=== PATIENT | female | born 1950 | race Caucasian/White ===

== ENCOUNTER 2020-10-20 18:33 | Emergency (ER) | payer SELFPAY ==
[~2020-10-20] VITALS: Ht 167.7 cm; Wt 61.7 kg
--- NOTE | 2020-10-20 19:01 | ED General ---
General Stated Complaint: LATHARGIC,DIZZY Source of Information: Patient, Family Exam Limitations: No Limitations History of Present Illness Date Seen by Provider: Oct 20, 2020 Time Seen by Provider: 18:45 Initial Comments Patient is a 70-year-old female with history of cognitive decline/forgetfulness over the past 3 years with generalized fatigue weakness and nonproductive cough for the past several days. Patient does not seek routine medical care and has not been on any medications. She lives with her son and is accompanied at bedside by her daughter who are both concerned that patient's condition has d eclined in the past several days. Patient did have a fall 3 days ago landed on her hip. She denies hip pain or any other pain complaint at this time. She did hit her head lose consciousness. She denies fever chills, nausea vomiting or sweats. She denies headache neck pain, chest pain palpitations shortness of breath. No abdominal pain, nausea vomiting or diarrhea. No urinary frequency urgency or dysuria. No leg pain or swelling. No other acute symptoms or complaints. Timing/Duration: 1 Week, Changing Over Time Severity: Mild Modifying Factors: improves with Other Associated Systoms: Other Allergies and Home Medications Allergies Coded Allergies: amoxicillin (Verified Allergy, Unknown, 10/20/20) Patient Home Medication List Home Medication List Reviewed: Yes Review of Systems Review of Systems Constitutional: see HPI EENTM: see HPI Respiratory: see HPI Cardiovascular: see HPI Gastrointestinal: see HPI Genitourinary: see HPI Musculoskeletal: see HPI Skin: see HPI Psychiatric/Neurological: See HPI Hematologic/Lymphatic: See HPI Immunological/Allergic: see HPI All Other Systems Reviewed Negative Unless Noted: Yes Past Buuorwb-Rtrwhv-Nggwlf Hx Patient Social History Tobacco Use?: Yes Physical Exam Vital Signs Vital Signs - First Documented 10/20/20 18:45 Temp 36.0 Pulse 98 Resp 18 B/P (MAP) 178/90 (119) Pulse Ox 90 Capillary Refill : Height, Weight, BMI Height: '" Weight: lbs. oz. kg; BMI Method: General Appearance: No Apparent Distress, Anxious Eyes: Bilateral Eye Normal Inspection, Bilateral Eye PERRL, Bilateral Eye EOMI HEENT: PERRL/EOMI, Normal ENT Inspection, Pharynx Normal Neck: Full Range of Motion, Non Tender, Supple Respiratory: Lungs Clear, No Respiratory Distress Cardiovascular: Regular Rate, Rhythm Gastrointestinal: Non Tender, Soft Back: Normal Inspection, No CVA Tenderness Neurologic/Psychiatric: Alert, Oriented x3, field coordinator II-XII Norm as Tested, Other (Flat affect) Reflexes: 4+ Bicep (R), 4+ Bicep (L), 4+ Tricep (R) Skin: Normal Color Lymphatic: No Adenopathy Progress/Results/Core Measures Suspected Sepsis SIRS Temperature: Pulse: Respiratory Rate: Laboratory Tests 10/20/20 18:55: White Blood Count 11.8H Blood Pressure / Mean: Laboratory Tests 10/20/20 18:55: Creatinine 1.08, Platelet Count 294, Total Bilirubin 1.5H Results/Orders Lab Results Laboratory Tests Test 10/20/20 18:55 10/20/20 19:08 10/20/20 19:58 Range/Units White Blood Count 11.8 H 4.3-11.0 10^3/uL Red Blood Count 5.95 H 4.35-5.85 10^6/uL Hemoglobin 16.0 11.5-16.0 G/DL Hematocrit 49 35-52 % Mean Corpuscular Volume 83 80-99 FL Mean Corpuscular Hemoglobin 27 25-34 PG Mean Corpuscular Hemoglobin Concent 33 32-36 G/DL Red Cell Distribution Width 14.1 10.0-14.5 % Platelet Count 294 130-400 10^3/uL Mean Platelet Volume 10.4 7.4-10.4 FL Immature Granulocyte % (Auto) 1 % Neutrophils (%) (Auto) 72 42-75 % Lymphocytes (%) (Auto) 18 12-44 % Monocytes (%) (Auto) 8 0-12 % Eosinophils (%) (Auto) 0 0-10 % Basophils (%) (Auto) 0 0-10 % Neutrophils # (Auto) 8.5 H 1.8-7.8 X 10^3 Lymphocytes # (Auto) 2.2 1.0-4.0 X 10^3 Monocytes # (Auto) 0.9 0.0-1.0 X 10^3 Eosinophils # (Auto) 0.0 0.0-0.3 10^3/uL Basophils # (Auto) 0.0 0.0-0.1 10^3/uL Immature Granulocyte # (Auto) 0.1 0.0-0.1 10^3/uL Sodium Level 137 135-145 MMOL/L Potassium Level 3.1 L 3.6-5.0 MMOL/L Chloride Level 97 L 98-107 MMOL/L Carbon Dioxide Level 25 21-32 MMOL/L Anion Gap 15 H 5-14 MMOL/L Blood Urea Nitrogen 28 H 7-18 MG/DL Creatinine 1.08 0.60-1.30 MG/DL Estimat Glomerular Filtration Rate 50 BUN/Creatinine Ratio 26 Glucose Level 136 H 70-105 MG/DL Calcium Level 9.4 8.5-10.1 MG/DL Corrected Calcium 9.6 8.5-10.1 MG/DL Magnesium Level 2.3 1.6-2.4 MG/DL Total Bilirubin 1.5 H 0.1-1.0 MG/DL Aspartate Amino Transf (AST/SGOT) 47 H 5-34 U/L Alanine Aminotransferase (ALT/SGPT) 42 0-55 U/L Alkaline Phosphatase 90 40-136 U/L Troponin I 0.30 <0.30 NG/ML Pro-B-Type Natriuretic Peptide 9731.0 H <75.0 PG/ML Total Protein 8.2 6.4-8.2 GM/DL Albumin 3.8 3.2-4.5 GM/DL Urine Color YELLOW Urine Clarity CLEAR Urine pH 5.5 5-9 Urine Specific [place] 1.020 1.016-1.022 Urine Protein 1+ H NEGATIVE Urine Glucose (UA) NEGATIVE NEGATIVE Urine Ketones NEGATIVE NEGATIVE Urine Nitrite NEGATIVE NEGATIVE Urine Bilirubin 1+ H NEGATIVE Urine Urobilinogen 1.0 < = 1.0 MG/DL Urine Leukocyte Esterase NEGATIVE NEGATIVE Urine RBC (Auto) NEGATIVE NEGATIVE Urine RBC NONE /HPF Urine WBC 0-2 /HPF Urine Squamous Epithelial Cells 0-2 /HPF Urine Crystals NONE /LPF Urine Bacteria NEGATIVE /HPF Urine Casts NONE /LPF Urine Mucus NEGATIVE /LPF Urine Culture Indicated NO My Orders Orders - ZEE IVY DO Cbc With Automated Diff (10/20/20 18:54) Comprehensive Metabolic Panel (10/20/20 18:54) Urinalysis (10/20/20 18:54) Magnesium (10/20/20 18:54) Thyroid Stimulating Hormone (10/20/20 18:54) Troponin I Fs (10/20/20 18:54) Probnp Fs (10/20/20 18:54) Chest 1 View Ap/Pa Only (10/20/20 18:54) Ct Head Wo (10/20/20 18:54) Covid 19 Inhouse Test (10/20/20 19:08) Ed Iv/Invasive Line Start (10/20/20 19:20) Manual Differential (10/20/20 18:55) Potassium Chloride (Tablet) (K Dur Table (10/20/20 19:45) Medications Given in ED Current Medications Medications Dose Ordered Sig/Mariana Route Start Time Stop Time Status Last Admin Dose Admin Potassium Chloride 40 meq ONCE ONCE PO 10/20/20 19:45 10/20/20 19:46 DC 10/20/20 20:05 40 MEQ Vital Signs/I&O 10/20/20 18:45 Temp 36.0 Pulse 98 Resp 18 B/P (MAP) 178/90 (119) Pulse Ox 90 Capillary Refill : Departure Communication (Admissions) CT head: Chronic microvascular disease Chest x-ray: Cardiomegaly Patient with multiple vague medical concerns/problems. Potassium 3.1. Potassium replaced in the ED. Patient blood pressure elevated. But no chest pain headache blurred vision. Covid positive peers asymptomatic with the exception of fatigue. Recommendations are self quarantine watchful waiting and PCP follow-up. Impression Primary Impression: Fatigue Additional Impressions: Hypokalemia Cardiomegaly COVID Disposition: HOME, SELF-CARE Condition: Stable Departure-Patient Inst. Decision time for Depature: 21:14 Referrals: NO,LOCAL PHYSICIAN (PCP/Family) Primary Care Physician Patient Instructions: Fatigue (DC), Hypokalemia (DC), COVID-19 Overview Add. Discharge Instructions: You were evaluated in the emergency department and tested positive for Covid. Additionally your potassium was low and your heart was enlarged. Please go home increase fluids and eat foods rich in potassium. Continue self quarantine for the next 7 days and establish with a new primary care provider. Return to the ED if new or worsening symptoms. ZEE IVY DO Oct 20, 2020 19:01
[2020-10-20 19:22] LABS: BASOPHILS % (AUTO) 0 % (0-10); EOSINOPHILS % (AUTO) 0 % (0-10); HEMATOCRIT 49 % (35-52); LYMPHOCYTES # (AUTO) 2.2 X 10^3 (1.0-4.0); LYMPHOCYTES % (AUTO) 18 % (12-44); MEAN CORPUSCULAR HEMOGLOBIN 27 PG (25-34); MEAN CORPUSCULAR HGB CONC 33 G/DL (32-36); MEAN CORPUSCULAR VOLUME 83 FL (80-99); MEAN PLATELET VOLUME 10.4 FL (7.4-10.4); MONOCYTES # (AUTO) 0.9 X 10^3 (0.0-1.0); MONOCYTES % (AUTO) 8 % (0-12); NEUTROPHILS # (AUTO) 8.5 X 10^3 (1.8-7.8); NEUTROPHILS % (AUTO) 72 % (42-75); PLATELET COUNT 294 10^3/uL (130-400); WHITE BLOOD COUNT 11.8 10^3/uL (4.3-11.0)
[2020-10-20 19:32] LABS: BILIRUBIN,TOTAL 1.5 MG/DL (0.1-1.0); CALCIUM 9.4 MG/DL (8.5-10.1); CREATININE SERUM 1.08 MG/DL (0.60-1.30); MAGNESIUM 2.3 MG/DL (1.6-2.4); POTASSIUM 3.1 MMOL/L (3.6-5.0)
[2020-10-20 19:33] LABS: ALBUMIN 3.8 GM/DL (3.2-4.5); TOTAL PROTEIN 8.2 GM/DL (6.4-8.2)
--- NOTE | 2020-10-20 19:36 | Diagnostic Imaging Report ---
EXAMINATION: CT head without contrast. TECHNIQUE: Multiple contiguous axial images were obtained through the brain without the use of intravenous contrast. All CT scans use one or more of the following dose optimizing techniques: automated exposure control, MA and/or KvP adjustment based on patient size and exam type or iterative reconstruction. HISTORY: Altered mental status. Dizziness. COMPARISON: None available. FINDINGS: No large acute territorial ischemia, mass, or hemorrhage. No midline shift or mass effect. Decreased attenuation is seen in the periventricular and subcortical white matter. The ventricles and cortical sulci are symmetric. The basilar cisterns are patent and unremarkable. The orbits are normal. Paranasal sinuses are normal. Mastoid air cells are clear. No soft tissue abnormality is seen. No osseus lesions or fractures are seen. IMPRESSION: 1. No large acute territorial ischemia, mass, or hemorrhage. 2. Chronic microvascular disease. Dictated by: Dictated on workstation # [id number]
--- NOTE | 2020-10-20 19:36 | Diagnostic Imaging Report ---
EXAMINATION: Chest 1 view. HISTORY: Shortness of breath. Dizziness. COMPARISON: None available. FINDINGS: The lung volumes are normal. Patchy opacities are seen in the left lung base. No large pleural effusion or pneumothorax is seen. The cardiomediastinal silhouette is prominent. No acute osseous abnormality is seen. IMPRESSION: 1. Patchy opacities in the left lung base. Findings may represent atelectasis or infection. 2. Cardiomegaly. No overt pulmonary edema. Dictated by: Dictated on workstation # [id number]
[2020-10-20] MEDS ORDERED: KCL 20 MEQ TAB (K-DUR) PO ONE (19:45)
[2020-10-20 20:49] LABS: CLARITY,URINE CLEAR; COLOR,URINE YELLOW; PH,URINE 5.5 (5-9)
[2020-10-20 20:50] LABS: BACTERIA,URINE NEGATIVE /HPF; BILIRUBIN,URINE 1+ (NEGATIVE); GLUCOSE, URINE (UA) NEGATIVE (NEGATIVE); KETONES,URINE NEGATIVE (NEGATIVE); LEUKOCYTE ESTERASE ,URINE NEGATIVE (NEGATIVE); NITRITE,URINE NEGATIVE (NEGATIVE); PROTEIN,URINE 1+ (NEGATIVE); SQUAMOUS EPITHELIAL CELL,UR 0-2 /HPF; WBC,URINE 0-2 /HPF
[2020-10-20 21:30] VITALS: BP 179/94
[2020-10-20 23:41] LABS: BAND NEUTROPHILS 2 %; EOSINOPHILS % (MANUAL) 1 %; LYMPHOCYTES % (MANUAL) 16 %; MONOCYTES % (MANUAL) 8 %; NEUTROPHILS % (MANUAL) 73 %; RBC MORPH NORMAL
== END 2020-10-20 21:30 | disposition home or self-care (01) ==
LOC: ER FS 18:35
DX: U07.1 COVID-19 (principal); R53.83 Other fatigue; E87.6 Hypokalemia; I51.7 Cardiomegaly
CPT/HCPCS: 36415; 51701; 70450; 71045; 80053; 81000; 83735; 83880; 84443; 84484; 85007; 85027; 87636